=== PATIENT | female | born 1960 | race African-American/Black ===

== ENCOUNTER 2021-03-30 11:09 | Emergency (ER) | payer OTHER ==
[2021-03-30 11:19] VITALS: BP 122/89; PULSE 82; TEMP 97.9; BMI 25.7
[2021-03-30] MEDS ORDERED: ACETAMINOPHEN 500 MG TABLET (FP) PO ONE (12:22)
[2021-03-30] MEDS ORDERED: ACETAMINOPHEN 500 MG TABLET (FP) ONE (12:29)
== END 2021-03-30 14:25 | disposition home or self-care (01) ==
LOC: JER 11:09
DX: G44.319 Acute post-traumatic headache, not intractable (principal); W20.8XXA Other cause of strike by thrown, projected or falling object, initial encounter
CPT/HCPCS: 70450-TC; 99284-25

== ENCOUNTER 2021-12-15 13:54 | Emergency (ER) | payer BC, OTHER ==
[2021-12-15 14:23] VITALS: BP 106/67; PULSE 72; RESP 16; TEMP 97.6; BMI 26.9
[2021-12-15] MEDS ORDERED: KETOROLAC TROMETHAMINE 30 MG/1 ML VIAL IM ONE (14:58)
[2021-12-15] MEDS ORDERED: LIDOCAINE 5% TOPICAL PATCH TP ONE (14:58)
[2021-12-15] MEDS ORDERED: LIDOCAINE 5% TOPICAL PATCH ONE (15:00)
[2021-12-15] MEDS ORDERED: KETOROLAC TROMETHAMINE 30 MG/1 ML VIAL ONE (15:00)
[2021-12-15] MEDS ORDERED: LIDOCAINE PATCH REMOVAL MC SCH (22:00)
== END 2021-12-15 15:26 | disposition home or self-care (01) ==
LOC: JERFT 13:54
PROC: 3E0233Z Introduction of Anti-inflammatory into Muscle, Percutaneous Approach (ICD-10-PCS; principal; 2021-12-15)
DX: M62.830 Muscle spasm of back (principal)
CPT/HCPCS: 96372; 99284-25

== ENCOUNTER 2022-11-06 10:35 | Emergency (ER) | payer OTHER ==
[2022-11-06 10:49] VITALS: BP 109/77; PULSE 74; RESP 18; TEMP 98.1; BMI 26.9
== END 2022-11-06 11:00 | disposition home or self-care (01) ==
LOC: JERFT 10:35
DX: R21 Rash and other nonspecific skin eruption (principal); K13.0 Diseases of lips
CPT/HCPCS: 99283-25

== ENCOUNTER 2022-12-08 20:17 | Emergency (ER) | payer OTHER ==
[2022-12-08 20:21] VITALS: BP 148/85; PULSE 86; RESP 20; BMI 26.9
[2022-12-08 20:33] VITALS: TEMP 97.8
[2022-12-08] MEDS ORDERED: ONDANSETRON 4 MG/2 ML VIAL IVPUSH ONE (21:01)
[2022-12-08] MEDS ORDERED: ACETAMINOPHEN 1000 MG/100 ML BAG IVPB ONE (21:02)
[2022-12-08] MEDS ORDERED: SODIUM CHLORIDE FOR INHALATION 3 ML VIAL.NEB IH ONE (21:05)
[2022-12-08] MEDS ORDERED: ACETAMINOPHEN INJECTION 100 ML IVPB ONE (21:07)
[2022-12-08] MEDS ORDERED: METOCLOPRAMIDE HCL INJECTION 10 MG/2 ML VIAL ONE (21:07)
[2022-12-08] MEDS ORDERED: METOCLOPRAMIDE HCL INJECTION 10 MG/2 ML VIAL IVPUSH ONE (21:23)
[2022-12-08 21:35] LABS: BASO % 0.9 % (0-2.0); HEMATOCRIT 38.8 % (32.4-45.2); HEMOGLOBIN 13.3 GM/dL (10.7-15.3); LYMPH % 44.3 % (8-40); MCH 28.1 pg (25.7-33.7); MCHC 34.2 g/dl (32.0-36.0); MEAN CELL VOLUME 82.1 fl (80-96); MEAN PLT VOLUME 8.2 fl (7.5-11.1); MONO % 7.4 % (3.8-10.2); NEUT % 47.4 % (42.8-82.8); PLATELET COUNT 326 10^3/uL (134-434); RBC 4.73 M/mm3 (3.60-5.2); RDW 14.2 % (11.6-15.6); WHITE BLOOD COUNT 7.1 K/mm3 (4.0-10.0)
[2022-12-08 21:39] LABS: EPI CELLS 17 /uL (0-25.1); HYALINE CASTS 1 /uL (0-3.1); PH,URINE 6.5 (5.0-8.0); URINE APPEARANCE CLEAR; URINE BACTERIA 25 /uL (0-1359); URINE BILIRUBIN NEGATIVE (NEGATIVE); URINE COLOR YELLOW; URINE GLUCOSE (UA) NEGATIVE (NEGATIVE); URINE KETONE NEGATIVE (NEGATIVE); URINE LEUK ESTERASE 2+ (NEGATIVE); URINE NITRITE NEGATIVE (NEGATIVE); URINE PROTEIN NEGATIVE (NEGATIVE); URINE RBC 4 /uL (0-23.9); URINE UROBILINOGEN 0.2 mg/dL (0.2-1.0); URINE WBC 38 /uL (0-25.8)
[2022-12-08] MEDS ORDERED: guaiFENesin 200 MG/10 ML 10 ML UNIT-DOSE CUPS PO ONE (21:42)
[2022-12-08] MEDS ORDERED: guaiFENesin/D-METHORPHAN HB 10 ML UNIT-DOSE CUPS ONE (21:48)
[2022-12-08] MEDS ORDERED: guaiFENesin 200 MG/10 ML 10 ML UNIT-DOSE CUPS ONE (21:48)
[2022-12-08 21:53] LABS: POTASSIUM 3.6 mmol/L (3.5-5.1)
[2022-12-08 21:54] LABS: CALCIUM 9.3 mg/dL (8.5-10.1)
[2022-12-08 21:55] LABS: ALBUMIN 4.2 g/dl (3.4-5.0); BLOOD UREA NITROGEN 8.8 mg/dL (7-18)
[2022-12-08 22:00] LABS: BILIRUBIN,TOTAL 0.4 mg/dL (0.2-1); TOT PROT 7.9 g/dl (6.4-8.2)
== END 2022-12-08 22:54 | disposition home or self-care (01) ==
LOC: JERFT 20:17
PROC: 3E033NZ Introduction of Analgesics, Hypnotics, Sedatives into Peripheral Vein, Percutaneous Approach (ICD-10-PCS; principal; 2022-12-08)
PROC: 3E033GC Introduction of Other Therapeutic Substance into Peripheral Vein, Percutaneous Approach (ICD-10-PCS; 2022-12-08)
DX: R05.9 Cough, unspecified (principal); N39.0 Urinary tract infection, site not specified; J40 Bronchitis, not specified as acute or chronic
CPT/HCPCS: 0241U-QW; 36415; 71045-TC-FY; 80053; 81003; 84443; 84484; 85025; 87086; 87651; 93005; 93010; 96374; 96375; 99285-25

== ENCOUNTER 2023-02-16 10:14 | Emergency (ER) | payer OTHER ==
[2023-02-16 10:22] VITALS: BP 118/78; PULSE 73; RESP 18; TEMP 97.4; BMI 28.8
[2023-02-16] MEDS ORDERED: KETOROLAC TROMETHAMINE 30 MG/1 ML VIAL IM ONE (11:06)
[2023-02-16] MEDS ORDERED: KETOROLAC TROMETHAMINE 30 MG/1 ML VIAL ONE (11:17)
== END 2023-02-16 13:05 | disposition home or self-care (01) ==
LOC: JERFT 10:14
PROC: 3E0233Z Introduction of Anti-inflammatory into Muscle, Percutaneous Approach (ICD-10-PCS; principal; 2023-02-16)
DX: M25.512 Pain in left shoulder (principal); X50.0XXA Overexertion from strenuous movement or load, initial encounter
CPT/HCPCS: 73030-TC-LT-FY; 99284-25

== ENCOUNTER 2023-10-24 08:26 | Emergency (ER) | payer OTHER ==
[2023-10-24 08:31] VITALS: BMI 26.9
[2023-10-24] MEDS ORDERED: ACETAMINOPHEN INJECTION 100 ML IVPB ONE (09:17)
[2023-10-24] MEDS: SODIUM CHLORIDE 0.9% 500 ML INFUS.BAG IV ONE (09:41)
[2023-10-24] MEDS: ACETAMINOPHEN 1000 MG/100 ML BAG IVPB ONE (09:42)
[2023-10-24 09:58] LABS: BASO % 0.7 % (0-2.0); HEMATOCRIT 40.3 % (32.4-45.2); HEMOGLOBIN 13.3 GM/dL (10.7-15.3); LYMPH % 18.1 % (8-40); MCH 28.3 pg (25.7-33.7); MCHC 33.1 g/dl (32.0-36.0); MEAN CELL VOLUME 85.5 fl (80-96); MEAN PLT VOLUME 8.4 fl (7.5-11.1); NEUT % 72.2 % (42.8-82.8); PLATELET COUNT 309 10^3/uL (134-434); RBC 4.71 M/mm3 (3.60-5.2); RDW 14.2 % (11.6-15.6); WHITE BLOOD COUNT 7.2 K/mm3 (4.0-10.0)
[2023-10-24 10:02] LABS: INR 1.04 (0.83-1.09); PROTHROMBIN TIME (PATIENT) 11.7 SEC (9.7-13.0)
[2023-10-24 10:05] LABS: ACTIVATED PTT 24.6 SECONDS (25.2-36.5)
[2023-10-24 10:15] LABS: POTASSIUM 4.6 mmol/L (3.5-5.1)
[2023-10-24 10:20] LABS: CALCIUM 8.9 mg/dL (8.5-10.1)
[2023-10-24 10:21] LABS: BLOOD UREA NITROGEN 9.3 mg/dL (7-18)
[2023-10-24 10:24] LABS: CREATININE 0.8 mg/dL (0.55-1.3)
[2023-10-24 10:26] LABS: BILIRUBIN,TOTAL 0.4 mg/dL (0.2-1)
[2023-10-24] MEDS ORDERED: BENZOCAINE/MENTH/CETYLPYRD CL 1 EACH LOZENGE MM ONE (11:32)
[2023-10-24] MEDS ORDERED: KETOROLAC TROMETHAMINE 15 MG/ML VIAL ONE (11:32)
[2023-10-24] MEDS: BENZOCAINE/MENTH/CETYLPYRD CL 1 EACH LOZENGE MM ONE (11:49)
[2023-10-24] MEDS: KETOROLAC TROMETHAMINE 15 MG/ML VIAL IVPUSH ONE (11:49)
[2023-10-24 12:47] VITALS: BP 117/87; PULSE 74; RESP 16; TEMP 98.6
[2023-10-24] MEDS ORDERED: DEXAMETHASONE SOD PHOSPHATE 10 MG/1 ML VIAL ONE (14:03)
[2023-10-24] MEDS: DEXAMETHASONE SOD PHOSPHATE 10 MG/1 ML VIAL IVPUSH ONE (14:07)
== END 2023-10-24 14:09 | disposition home or self-care (01) ==
LOC: JER 08:26
PROC: 3E033NZ Introduction of Analgesics, Hypnotics, Sedatives into Peripheral Vein, Percutaneous Approach (ICD-10-PCS; principal; 2023-10-24)
PROC: 3E033GC Introduction of Other Therapeutic Substance into Peripheral Vein, Percutaneous Approach (ICD-10-PCS; 2023-10-24)
PROC: 3E0333Z Introduction of Anti-inflammatory into Peripheral Vein, Percutaneous Approach (ICD-10-PCS; 2023-10-24)
DX: R05.9 Cough, unspecified (principal); R50.9 Fever, unspecified; R06.9 Unspecified abnormalities of breathing; J06.9 Acute upper respiratory infection, unspecified; B97.89 Other viral agents as the cause of diseases classified elsewhere; Z20.822 Contact with and (suspected) exposure to COVID-19
CPT/HCPCS: 0241U-QW; 36415; 71045-TC-FY; 71250-TC; 80053; 84484; 85025; 85610; 85730; 87651; 93005; 93010; 96374; 96375; 96376; 99285-25; J0131; J1100